=== PATIENT | male | born 1990 | race Caucasian/White ===

== ENCOUNTER 2023-01-06 16:56 | Emergency (ER) | payer SELFPAY ==
[2023-01-06] MEDS ORDERED: KETOROLAC 30 MG/ML INJ ONE (17:08)
[2023-01-06] MEDS ORDERED: TDAP (DIPHTH,PERTUSS(ACELL),TET VAC) 0.5 ML VIAL IMVAC ONE (17:09)
[2023-01-06] MEDS ORDERED: NA CHLORIDE 0.9% 1,000 ML ONE (17:09)
[2023-01-06 17:15] LABS: Absolute Lymphocytes (CBC) 1.8 K/uL (0.7-4.9); Hematocrit 41.7 % (39.6-49.0); Lymphocytes % 23.8 % (15.3-44.8); MPV 9.1 fL (7.6-11.3); RBC Red Blood Cell Count 4.44 M/uL (4.33-5.43)
[2023-01-06 17:33] LABS: Albumin 3.8 g/dL (3.4-5.0); Bilirubin Total 0.4 mg/dL (0.2-1.0); Potassium 3.3 mEq/L (3.5-5.1); Protein, Total 6.8 g/dL (6.4-8.2)
--- NOTE | 2023-01-06 17:34 | RAD REPORT ---
EXAM DESCRIPTION: CT - Head C Spine Mpr Wo Con - 01/06/2023 5:14 pm CLINICAL HISTORY: Head and neck injury status post fall. Head and neck pain COMPARISON: None. TECHNIQUE: Computed axial tomography of the head and cervical spine was obtained. Sagittal and coronal reconstruction was performed. All CT scans are performed using dose optimization technique as appropriate and may include automated exposure control or mA/KV adjustment according to patient size. FINDINGS: Left parietal scalp laceration An intracranial bleed is not seen. The ventricles are normal in caliber. No significant hypodensity within the brain. An extra-axial fluid collection is not noted. Cerebellar tonsillar ectopia Fluid within the visualized sinuses and mastoids is not seen A cervical fracture is not visualized. No dislocation is noted. IMPRESSION: No acute intracranial abnormality is seen. A cervical fracture is not visualized. If the patient continues to have symptoms to suggest intracranial /spinal cord pathology then MRI wou ld be recommended
--- NOTE | 2023-01-06 19:10 | ER ---
Nurse's Notes [facility] Name: Iván Lane Age: 32 yrs Sex: Male : 1990 Arrival Date: 01/06/2023 Time: 16:56 Bed 8 Private MD: Diagnosis: Unspecified injury of head, initial encounter;Laceration without foreign body of scalp;Fall (on)(from) incline Presentation: 01/06 17:02 Chief complaint: Fell from rail approx 3.5 feet while skateboarding, landed supine, hb laceration to back of head, bleeding controlled. Unknown LOC. Coronavirus screen: At this time, the client does not indicate any symptoms associated with coronavirus-19. Ebola Screen: No symptoms or risks identified at this time. 17:02 Method Of Arrival: Wheelchair hb 17:25 Initial Sepsis Screen: Does the patient meet any 2 criteria? No. Patient's initial iw sepsis screen is negative. Does the patient have a suspected source of infection? No. Patient's initial sepsis screen is negative. Risk Assessment: Do you want to hurt yourself or someone else? Patient reports no desire to harm self or others. Onset of symptoms was January 06, 2023. 17:25 Acuity: DEBRA 3 iw Triage Assessment: 19:20 General: Appears comfortable, Behavior is calm, cooperative. Pain: Complains of pain in ha1 scalp. Historical: - Allergies: 17:04 No Known Allergies; hb - Home Meds: 17:04 None [Active]; hb - PMHx: 17:04 None; hb - PSHx: 17:04 None; hb - Immunization history:: Last tetanus immunization: > 10 years ago. - Social history:: Smoking status: Patient denies any tobacco usage or history of. Screenin:27 [facility] ED Fall Risk Assessment (Adult) History of falling in the last 3 months, iw including since admission Yes- single mechanical fall (1 pt). Abuse screen: Denies threats or abuse. Denies injuries from another. Nutritional screening: No deficits noted. Tuberculosis screening: No symptoms or risk factors identified. Assessment: 16:58 Reassessment: TRAUMA ALERT CALLED. hb 18:55 Reassessment: Patient appears in no apparent distress at this time. No changes from hb previously documented assessment. Patient and/or family updated on plan of care and expected duration. Pain level reassessed. Patient is alert, oriented x 3, equal unlabored respirations, skin warm/dry/pink. 19:26 Reassessment: Patient appears in no apparent distress at this time. Patient and/or iw family updated on plan of care and expected duration. Pain level reassessed. Patient is alert, oriented x 3, equal unlabored respirations, skin warm/dry/pink. Patient states feeling better. Patient states symptoms have improved. 20:14 Reassessment: Patient and/or family updated on plan of care and expected duration. Pain ha1 level reassessed. Patient is alert, oriented x 3, equal unlabored respirations, skin warm/dry/pink. Patient states feeling better. Patient states symptoms have improved. Vital Signs: 17:02 BP 139 / 81; Pulse 78; Resp 18; Temp 98.4; Pulse Ox 98% on R/A; Weight 83.91 kg; Height hb 6 ft. 2 in. ; Pain 8/10; 19:27 BP 137 / 80; Pulse 81; Resp 16; Temp 98.1; Pulse Ox 98% on R/A; iw 20:14 BP 138 / 80; Pulse 80; Resp 16 S; Pulse Ox 99% on R/A; ha1 17:02 Body Mass Index 23.75 (83.91 kg, 187.96 cm) hb 17:02 Pain Scale: Adult hb ED Course: 16:57 Patient arrived in ED. hb 16:58 Loida Childress FNP-C is PHCP. snw 16:58 Sergey Lazo MD is Attending Physician. snw 17:04 Arm band placed on. hb 17:16 CT Head C Spine In Process Unspecified. EDMS 17:21 Mona White, RN is Primary Nurse. iw 17:25 Triage completed. iw 19:00 IV is patent. iw 19:20 Patient has correct armband on for positive identification. Placed in gown. Bed in low ha1 position. Call light in reach. Side rails up X 1. Adult w/ patient. 20:15 No provider procedures requiring assistance completed. IV discontinued, intact, ha1 bleeding controlled, No redness/swelling at site. Pressure dressing applied. Administered Medications: 17:07 Drug: Boostrix Tdap IM 0.5 ml Route: IM; Site: left deltoid; hb 18:30 Drug: NS 0.9% IV 1000 ml Route: IV; Rate: 1000 ml; Site: right antecubital; hb 18:55 Drug: Ketorolac IVP 30 mg Route: IVP; Site: right antecubital; hb 20:00 Drug: AZITHromycin PO 500 mg Route: PO; ha1 20:12 Follow up: Response: No adverse reaction ha1 20:00 Drug: Cyclobenzaprine PO 10 mg Route: PO; ha1 20:12 Follow up: Response: No adverse reaction ha1 20:00 Drug: Potassium PO Effervescent Tablet 50 mEq Route: PO; ha1 20:12 Follow up: Response: No adverse reaction ha1 Medication: 17:08 Vaccine Information Statement (VIS) provided today. Questions and/or concerns hb addressed. VIS edition date: March 25, 2021. Outcome: 19:09 Discharge ordered by . snw 20:15 Discharged to home ambulatory, with family. ha1 20:15 Condition: stable 20:15 Discharge instructions given to patient, family, Instructed on discharge instructions, follow up and referral plans. medication usage, Demonstrated understanding of instructions, follow-up care, medications, Prescriptions given X 3. 20:16 Patient left the ED. ha1 Signatures: Dispatcher [employer] EDMS Loida Childress, SELINA-C [employer] PREPARER APPRENTICE-Csnw Mona White RN RN Kimberly Jason RN RN hb Ayala, Heidy, RN RN ha1 Corrections: (The following items were deleted from the chart) 20:12 20:11 Potassium PO Effervescent Tablet 50 mEq PO ha1 ha1
--- NOTE | 2023-01-06 19:10 | EDPHYS ---
Physician Documentation [facility] Name: Iván Lane Age: 32 yrs Sex: Male : 1990 Arrival Date: 01/06/2023 Time: 16:56 Bed 8 Private MD: ED Physician Sergey Lazo HPI: 01/06 17:03 This 32 yrs old Male presents to ER via Unassigned with complaints of head injury. snw 17:03 Trauma demographics: County: The injury occurred in [place] Location of Injury: The snw injury occurred on a street or driveway, Date: January 06, 2023, Time: 17:03. Mechanism of injury: Fall: the patient fell 4 foot rail while skating. Associated injuries: The patient sustained injury to the head, hematoma, pain, laceration. Onset: The symptoms/episode began/occurred suddenly, just prior to arrival. The patient has not experienced similar symptoms in the past. It is unknown whether or not the patient has recently seen a physician. denies LOC. Historical: - Allergies: 17:04 No Known Allergies; hb - Home Meds: 17:04 None [Active]; hb - PMHx: 17:04 None; hb - PSHx: 17:04 None; hb - Immunization history:: Last tetanus immunization: > 10 years ago. - Social history:: Smoking status: Patient denies any tobacco usage or history of. ROS: 17:07 Constitutional: Negative for fever, chills, and weight loss, Eyes: Negative for injury, snw pain, redness, and discharge, ENT: Negative for injury, pain, and discharge, Neck: Negative for injury, pain, and swelling, Cardiovascular: Negative for chest pain, palpitations, and edema, Respiratory: Negative for shortness of breath, cough, wheezing, and pleuritic chest pain, Abdomen/GI: Negative for abdominal pain, nausea, vomiting, diarrhea, and constipation, Back: Negative for injury and pain, : Negative for injury, bleeding, discharge, and swelling, MS/Extremity: Negative for injury and deformity. 17:07 Skin: Positive for abrasion(s). 17:07 Neuro: Positive for headache, loss of consciousness, LOC = "if I did it was for just a few second". Exam: 17:04 Constitutional: This is a well developed, well nourished patient who is awake, alert, snw and in no acute distress. 17:04 Eyes: Pupils equal round and reactive to light, extra-ocular motions intact. Lids and lashes normal. Conjunctiva and sclera are non-icteric and not injected. Cornea within normal limits. Periorbital areas with no swelling, redness, or edema. ENT: Nares patent. No nasal discharge, no septal abnormalities noted. Tympanic membranes are normal and external auditory canals are clear. Oropharynx with no redness, swelling, or masses, exudates, or evidence of obstruction, uvula midline. Mucous membranes moist. Neck: Trachea midline, no thyromegaly or masses palpated, and no cervical lymphadenopathy. Supple, full range of motion without nuchal rigidity, or vertebral point tenderness. No Meningismus. Chest/axilla: Normal chest wall appearance and motion. Nontender with no deformity. No lesions are appreciated. Cardiovascular: Regular rate and rhythm with a normal S1 and S2. No gallops, murmurs, or rubs. Normal PMI, no JVD. No pulse deficits. Respiratory: Lungs have equal breath sounds bilaterally, clear to auscultation and percussion. No rales, rhonchi or wheezes noted. No increased work of breathing, no retractions or nasal flaring. Abdomen/GI: Soft, non-tender, with normal bowel sounds. No distension or tympany. No guarding or rebound. No evidence of tenderness throughout. Back: No spinal tenderness. No costovertebral tenderness. Full range of motion. MS/ Extremity: Pulses equal, no cyanosis. Neurovascular intact. Full, normal range of motion. Neuro: Awake and alert, GCS 15, oriented to person, place, time, and situation. Cranial nerves II-XII grossly intact. Motor strength 5/5 in all extremities. Sensory grossly intact. Cerebellar exam normal. Normal gait. Psych: Awake, alert, with orientation to person, place and time. Behavior, mood, and affect are within normal limits. 17:04 Head/face: Noted is a laceration(s), that is linear, of the right side of the back of head, swelling, that is moderate, tenderness, that is moderate. 17:04 Skin: Appearance: normal except for affected area, injury, abrasion(s), small abrasion noted, of the left scapular area and left low back and right elbow, contusion(s), of the left side of the back of head. 17:04 Neuro: Orientation: is normal, Mentation: is normal, Memory: is normal, seizure activity, is not displayed by the patient. Vital Signs: 17:02 BP 139 / 81; Pulse 78; Resp 18; Temp 98.4; Pulse Ox 98% on R/A; Weight 83.91 kg; Height hb 6 ft. 2 in. ; Pain 8/10; 19:27 BP 137 / 80; Pulse 81; Resp 16; Temp 98.1; Pulse Ox 98% on R/A; iw 20:14 BP 138 / 80; Pulse 80; Resp 16 S; Pulse Ox 99% on R/A; ha1 17:02 Body Mass Index 23.75 (83.91 kg, 187.96 cm) hb 17:02 Pain Scale: Adult hb Laceration: 19:06 Wound Repair of 5cm ( 2.0in ) full thickness laceration to left side of the back of snw head. Irregularly shaped.. Distal neuro/vascular/tendon intact. Anesthesia: Local anesthetic administered with 6 mls of 1% lidocaine. Wound prep: Moderate cleansing with hibiclenz by me. Skin closed with 6 1-0 Rainier using staple gun. Dressed with tube gauze. Patient tolerated well. MDM: 16:58 Patient medically screened. rod 19:13 Differential diagnosis: closed head injury, C spine fracture. Data reviewed: vital snw signs, nurses notes. Historians other than the Patient: Spouse/Significant Other: G-Friend. Counseling: I had a detailed discussion with the patient and/or guardian regarding: the historical points, exam findings, and any diagnostic results supporting the discharge/admit diagnosis, the presence of at least one elevated blood pressure reading (>120/80) during this emergency department visit, radiology results, the need for outpatient follow up, for definitive care, to return to the emergency department if symptoms worsen or persist or if there are any questions or concerns that arise at home. Response to treatment: the patient's symptoms have mildly improved after treatment. Special discussion: Based on the patient's history, exam and DX evaluation, there is no indication for emergent intervention or inpatient TX. It is understood by the patient/guardian that if the SXs persist or worsen they need to return immediately for re-evaluation. Based on the history and exam findings, there is no indication for further emergent testing or inpatient evaluation. I discussed with the patient/guardian the need to see the primary care provider for further evaluation of the symptoms. 01/06 16:59 Order name: Urine W/Microscopic (UAM) snw 01/06 16:59 Order name: CBC with Diff; Complete Time: 17:28 snw 01/06 16:59 Order name: CMP; Complete Time: 17:43 snw 01/06 16:59 Order name: CT Head C Spine; Complete Time: 17:43 snw 01/06 19:08 Order name: Wound dressing: telfa, 4x4, spandage to make beanie; Complete Time: 20:14 snw Administered Medications: 17:07 Drug: Boostrix Tdap IM 0.5 ml Route: IM; Site: left deltoid; hb 18:30 Drug: NS 0.9% IV 1000 ml Route: IV; Rate: 1000 ml; Site: right antecubital; hb 18:55 Drug: Ketorolac IVP 30 mg Route: IVP; Site: right antecubital; hb 20:00 Drug: AZITHromycin PO 500 mg Route: PO; ha1 20:12 Follow up: Response: No adverse reaction ha1 20:00 Drug: Cyclobenzaprine PO 10 mg Route: PO; ha1 20:12 Follow up: Response: No adverse reaction ha1 20:00 Drug: Potassium PO Effervescent Tablet 50 mEq Route: PO; ha1 20:12 Follow up: Response: No adverse reaction ha1 Disposition Summary: 01/06/23 19:09 Discharge Ordered Location: Home snw Condition: Stable snw Diagnosis - Unspecified injury of head, initial encounter snw - Laceration without foreign body of scalp snw - Fall (on)(from) incline snw Followup: snw - With: Emergency Department - When: As needed - Reason: Worsening of condition Followup: snw - With: Private Physician - When: 7 - 10 days - Reason: Staple/Suture removal Discharge Instructions: - Discharge Summary Sheet snw - Concussion, Adult snw - Head Injury, Adult snw - Sutures, Rainier, or Adhesive Wound Closure snw Forms: - Medication Reconciliation Form snw - Thank You Letter snw - Antibiotic Education snw - Prescription Opioid Use snw Prescriptions: - Mobic 7.5 mg Oral Tablet - take 1 tablet by ORAL route once daily take with food; 20 tablet; Refills: 0, snw Product Selection Permitted - orphenadrine citrate 100 mg Oral Tablet Sustained Release - take 1 tablet by ORAL route 2 times per day As needed; 20 tablet; Refills: 0, snw Product Selection Permitted - Zithromax 500 mg Oral Tablet - take 1 tablet by ORAL route once daily for 5 days; 5 tablet; Refills: 0, snw Product Selection Permitted Signatures: Dispatcher [employer] EDSergey Giron MD MD cha Waters, Shelly, G[employer]IGH MACHINE ADJUSTER-C [employer] WE[employer] MACHINE ADJUSTER-Csnw Kimberly Jason, RN RN Shanna Parsons RN RN ha1
[2023-01-06] MEDS ORDERED: CYCLOBENZAPRINE 10 MG TAB ONE (19:48)
[2023-01-06] MEDS ORDERED: AZITHROMYCIN 250 MG TAB ONE (19:49)
[2023-01-06] MEDS ORDERED: POTASSIUM 25 MEQ EFFERV TAB ONE (19:49)
[2023-01-06 20:23] VITALS: TEMP 98.1
[2023-01-06 20:24] VITALS: BP 138/80; O2SAT 99
== END 2023-01-06 20:16 | disposition home or self-care (01) ==
LOC: ER 16:56
PROC: 0HQ0XZZ Repair Scalp Skin, External Approach (ICD-10-PCS; principal; 2023-01-06)
DX: S01.01XA Laceration without foreign body of scalp, initial encounter (principal); W10.2XXA Fall (on)(from) incline, initial encounter
CPT/HCPCS: 36415; 70450; 72125; 80053; 85025; J7030